=== PATIENT | female | born 2000 | race Caucasian/White ===

== ENCOUNTER 2022-08-04 15:13 | Emergency (ER) | payer OTHER ==
[~2022-08-04] VITALS: Ht 165.1 cm; Wt 104.3 kg
[~2022-08-04 15:13] MED LIST: AMOXIL250 MG/5 M PO; CLARITIN-D 12 H1 TAB PO; MOTRIN100 MG/5 M PO
[2022-08-04 16:02] VITALS: BP 146/88
== END 2022-08-04 16:18 | disposition home or self-care (01) ==
LOC: ED 15:13
DX: G43.909 Migraine, unspecified, not intractable, without status migrainosus (principal); R03.0 Elevated blood-pressure reading, without diagnosis of hypertension; Z91.040 Latex allergy status